=== PATIENT | male | born 1970 | race Caucasian/White ===

== ENCOUNTER 2017-07-21 06:22 | Day surgery (SDC) | payer SELFPAY ==
[~2017-07-21] VITALS: Ht 172.7 cm; Wt 81.6 kg
[2017-07-21] VITALS (8 sets, daily range): BP systolic 108–121; BP diastolic 67–91
[~2017-07-21 06:22] MED LIST: CRESTOR20 MG ORAL; PROPECIA1 MG PO
[2017-07-21] MEDS ORDERED: LR 1000ml 1,000 ML IVLG SCH (06:57)
--- NOTE | 2017-07-21 06:57 | Anethesia Preoperative Eval ---
Anesthesia Pre-op PMH/ROS General Date of Evaluation: Jul 21, 2017 Time of Evaluation: 06:51 Anesthesiologist: sanjay ASA Score: ASA 2 Mallampati Score Class I : Soft palate, uvula, fauces, pillars visible Class II: Soft palate, uvula, fauces visible Class III: Soft palate, base of uvula visible Class IV: Only hard plate visible Mallampati Classification: Class II Surgeon: dillan Diagnosis: colon polyps Surgical Procedure: colonoscopy Anesthesia History: none Social History: smoking - nonsmoker Family History: no anesthesia problems Allergies: Coded Allergies: No Known Allergies (Unverified , 09/13/13) Medications: see eMAR Past Medical History Cardiovascular: Reports: other - hypercholesterolemia, Pulmonary: Reports: LALITHA, other - bronchitis Anesthesia Pre-op Phys. Exam Physician Exam Last Vital Signs Date Time Temp Pulse Resp B/P (MAP) Pulse Ox O2 Delivery O2 Flow Rate FiO2 07/21/17 06:58 98.6 84 18 121/74 98 Room Air Constitutional: NAD Neurologic: CN 2-12 intact Cardiovascular: RRR Respiratory: CTA Airway Exam Mallampati Score: Class II MO: full Neck: supple TMD: 2fb ROM: full Teeth: intact Anesthesia Pre-op A/P Studies Pre-op Studies: EKG - nsr Risk Assessment & Plan Assessment: asa2 Plan: mac Status Change Before Surgery: No Pre-Antibiotics Drug: LOLA Dove Jul 21, 2017 06:57
[2017-07-21] MEDS ORDERED: DiphenhydrAMINE 50mg/ml Inj IVP PRN (07:00)
[2017-07-21] MEDS ORDERED: fentaNYL 100 mcg/2 mL IV PRN (07:00)
[2017-07-21] MEDS ORDERED: Midazolam 2mg/2ml Inj IVP PRN (07:00)
[2017-07-21] MEDS ORDERED: Atropine Inj 1mg/10ml Syr IV PRN ×2 (07:00→07:15)
--- NOTE | 2017-07-21 07:56 | Short Stay Surgery H&P ---
History of Present Illness History of Present Illness Chief Complaint h/o colon polyps HPI Sharon Cochran is a 47 year old male who was admitted on for Hx Of Colon Polyps Patient History Allergies: Coded Allergies: No Known Allergies (Unverified , 09/13/13) PAST MEDICAL HISTORY: Past Surgeries: Social History: Medication History Scheduled Rosuvastatin Calcium* (Crestor*), 20 MG ORAL DAILY, (Reported) Discontinued Medications Finasteride (Propecia), 1 MG PO DA, (Reported) Discontinued Reason: Pt stopped taking med Review of Systems Cardiovascular: Reports: no symptoms Respiratory: Reports: no symptoms Skeletal: Reports: no symptoms Gastrointestinal: Reports: other - constipation Genitourinary: Reports: no symptoms Neurologic: Reports: no symptoms Endocrine: Reports: no symptoms Hematologic: Reports: no symptoms Physical Exam Vital Signs Last Vital Signs Date Time Temp Pulse Resp B/P (MAP) Pulse Ox O2 Delivery O2 Flow Rate FiO2 07/21/17 06:58 98.6 84 18 121/74 98 Room Air Skin: normal HENT: normal Heart: normal Lungs: normal Abdomen: normal Extremities: normal Plan Plan of Care colonoscopy Final Diagnosis: Attestation Are the patient's medical conditions optimized for surgery? Attestation Response: yes TIA MCGEE Jul 21, 2017 07:56
--- NOTE | 2017-07-21 07:57 | Pre-Procedure Note/Attestation ---
Pre-Procedure Note/Attestation Complete Prior to Procedure Planned Procedure: not applicable Procedure Narrative: colonoscopy Indications for Procedure Pre-Operative Diagnosis: colon polyps Attestation I attest that I discussed the nature of the procedure; its benefits; risks and complications; and alternatives (and the risks and benefits of such alternatives ), prior to the procedure, with the patient (or the patient's legal employer relations representative). I attest that, if there was a reasonable possibility of needing a blood transfusion, the patient (or the patient's legal employer relations representative) was given the [facility] standardized written summary, pursuant to the [place] Blood Safety Act ([place] Health and Safety Code # 1645, as amended). I attest that I re-evaluated the patient just prior to the surgery and that there has been no change in the patient's H&P, except as documented below: TIA MCGEE Jul 21, 2017 07:56
[2017-07-21] MEDS ORDERED: Lidocaine 1% MPF 10mg/ml 5ml ONE (08:00)
[2017-07-21] MEDS ORDERED: Propofol 200mg/20ml IV ONE (08:00)
--- NOTE | 2017-07-21 08:29 | Endoscopy Procedure Note ---
Endoscopy Procedure Note Indication for Procedure: colon polyps Procedures Performed: colonoscopy Operative Findings/Diagnosis: 1.2 cm polyp Specimen: yes Pt Tolerated Procedure Well: Yes Estimated Blood Loss: none Anesthesiologist: salty Anesthesia: MAC Implant(s) used?: No 50 yrs or older w/o bx or poly: Not Applicable 10yrs. F/U not recommended: Not Applicable TIA MCGEE Jul 21, 2017 08:29
--- NOTE | 2017-07-21 08:50 | Immediate Post-Op Evaluation ---
Immediate Post-Op Evalulation Immediate Post-Op Evalulation Procedure: colonoscopy Date of Evaluation: Jul 21, 2017 Time of Evaluation: 08:49 IV Fluids: 450ml 0.9ns Blood Products: none Estimated Blood Loss: negligible Blood Pressure Systolic: 112 Blood Pressure Diastolic: 68 Pulse Rate: 66 Respiratory Rate: 18 O2 Sat by Pulse Oximetry: 100 Temperature (Fahrenheit): 97.9 Pain Score (1-10): 0 Nausea: No Vomiting: No Complications none Patient Status: awake, reacts, patent Hydration Status: adequate Drug: LOLA Dove Jul 21, 2017 08:50
--- NOTE | 2017-07-21 08:51 | 48 Hour Post Anesthesia Eval ---
Post Anesthesia Evaluation Procedure: colonoscopy Date of Evaluation: Jul 21, 2017 Time of Evaluation: 08:51 Blood Pressure Systolic: 115 0: 68 Pulse Rate: 66 Respiratory Rate: 18 Temperature (Fahrenheit): 97.9 O2 Sat by Pulse Oximetry: 99 Airway: patent Nausea: No Vomiting: No Pain Intensity: 0 Hydration Status: adequate Cardiopulmonary Status: stable Mental Status/LOC: patient returned to baseline Post-Anesthesia Complications: none Follow-up care needed: N/A LOLA CALDERON Jul 21, 2017 08:51
--- NOTE | 2017-07-21 15:17 | Procedure Note ---
DATE OF PROCEDURE: 07/21/2017 SURGEON: Shay Hernandez M.D. PROCEDURE: Colonoscopy with snare polypectomy. ANESTHESIA: Per Dr. Natali Spence. INSTRUMENT: Olympus adult flexible colonoscope. INDICATIONS: 1. History of colonic polyps. 2. Family history of colon cancer. REASON FOR PROCEDURE: The procedure, risks, benefits, and possible consequences, including hemorrhage, aspiration, perforation and infection, and alternative treatments, were explained to the patient/legal guardian by Dr. Shay Hernandez and the patient/legal guardian understood and accepted these risks. DESCRIPTION OF PROCEDURE: After informed consent was obtained and the patient was adequately sedated, first rectal exam was performed, which was normal. Then, the scope was advanced from the rectum into the cecum and then subsequently into the terminal ileum. Quality of prep was very good. The patient had one pedunculated polyp at about 40 cm from the anal verge in the sigmoid colon, measured roughly about 1.2 cm, and removed with the snare polypectomy technique. Then, there was a little bleeding at the base of the polypectomy, so we placed a hemoclip without any complication and that controlled the bleeding. Under retroflexion of the rectum, the patient had evidence of small internal hemorrhoids. The patient tolerated the procedure well without any complications. SUMMARY OF FINDINGS: 1. A 1.2 cm polyp in the sigmoid colon status post resection and hemoclip for hemostasis. 2. Internal hemorrhoids. RECOMMENDATIONS: 1. Follow up biopsy results. 2. We recommend repeat colonoscopy in three years. Shay Hernandez M.D. DR: STEVE JOB#: [id number] CC:
--- NOTE | 2017-07-23 15:14 | Cardiology Report ---
APPROVED REPORT EKG Measurement Heart [id number] Normal sinus rhythm Normal ECG
== END 2017-07-21 09:30 | disposition home or self-care (01) ==
LOC: GAS 06:22
DX: K63.5 Polyp of colon (principal); K64.8 Other hemorrhoids; E78.00 Pure hypercholesterolemia, unspecified; G47.33 Obstructive sleep apnea (adult) (pediatric)
CPT/HCPCS: 45380; 93005; J2704; 94003; 94150